=== PATIENT | male | born 1950 | race Caucasian/White ===

== ENCOUNTER 2018-02-01 21:49 | Observation (INO) | payer MEDICARE ==
[2018-02-01] MEDS ORDERED: ASPIRIN 81 MG CHEWABLE TABLET PO ONE (22:15)
--- NOTE | 2018-02-01 22:22 | Emergency Department Record ---
History of Present Illness - General Chief Complaint: Chest Pain Stated Complaint: CHEST PAIN Time Seen by Provider: 02/01/18 22:08 Source: Patient Mode of Arrival: Ambulatory Limitations: No limitations - History of Present Illness Initial Comments: 67 yo male presents to ED for evaluation of chest pain symptoms that began this evening while doing dishes at home. Patient described his pain symptoms as a "twinge" intermittently, denies chest pressure or difficulty in breathing symptoms. Patient reports history of CHF and atrial fibrillation managed by his insurance follow up specialist in [place] (just moved her 3 weeks ago). Patient denies fevers , chills, or recent illness. Patient denies lower extremity pain or swelling on examination. MD Complaint: Chest pain Onset/Timin -: Minutes(s) Onset: Other Pain Location: Left chest Quality: Sharp Consistency: Now resolved Improves With: Nothing Worsens With: Nothing - Related Data Home Medications Medication Instructions Recorded Confirmed Last Taken Lisinopril [Zestril] 2.5 mg PO DAILY 02/01/18 02/01/18 Unknown Omeprazole 40 mg PO BID 02/01/18 02/01/18 Unknown Allergies Allergy/AdvReac Type Severity Reaction Status Date / Time No Known Drug Allergies Allergy Verified 02/01/18 21:52 Travel Screening - Travel/Exposure Within Last 30 Days Have you traveled within the last 30 days?: Yes Location Detail:: from [place] - Travel Symptoms Symptom Screening: None - Additional Travel Comment Additional Travel/Exposure Comment: left [place] Jan 02- 5 day trip all together Review of Systems Constitutional: Denies: Chills, Fever, Malaise, Night sweats Eyes: Denies: Eye discharge, Eye pain ENT: Denies: Congestion, Ear pain, Epistaxis Respiratory: Denies: Cough, Dyspnea Cardiovascular: Reports: Chest pain. Denies: Dyspnea on exertion, Edema Endocrine: Denies: Fatigue, Heat or cold intolerance Gastrointestinal: Denies: Abdominal pain, Nausea, Vomiting Genitourinary: Denies: Incontinence, Retention Musculoskeletal: Denies: Arthralgia, Back pain, Gout, Joint swelling Skin: Denies: Bruising, Change in color Neurological: Denies: Abnormal gait, Confusion, Headache, Seizure Psychiatric: Denies: Anxiety Hematological/Lymphatic: Reports: Easy bleeding, Easy bruising. Denies: Anemia , Blood Clots Past Medical History - SOCIAL HISTORY Smoking Status: Never smoker - RESPIRATORY Hx Respiratory Disorders: Yes Hx Sleep Apnea: Yes Hx of CPAP: Yes - CARDIOVASCULAR Hx Cardio Disorders: Yes Hx CHF: Yes Hx Edema: Yes Hx Hypertension: Yes Hx Irregular Heartbeat: Yes (A-fib) Comment:: "low blood pressure" - NEURO Hx Neuro Disorders: Yes Hx Dizziness: Yes (Vertigo) Hx TIA: Yes - GI Hx GI Disorders: Yes Hx Reflux: Yes - Hx Genitourinary Disorders: No - ENDOCRINE Hx Endocrine Disorders: No - MUSCULOSKELETAL Hx Musculoskeletal Disorders: Yes Hx Arthritis: Yes - PSYCH Hx Psych Problems: Yes Hx Anxiety: Yes - HEMATOLOGY/ONCOLOGY Hx Hematology/Oncology Disorders: No Family Medical History Any Significant Family History?: Yes Family Hx Comment (NOT TO BE USED IN PLACE OF ITEMS BELOW): sister w/IBS Hx Cancer: Father, Brother/Sister Hx Diabetes: Brother/Sister Hx Heart Disease: Father, Mother, Brother/Sister Hx Resp Disorders: Mother *Resp Comment: COPD Hx Stroke: Mother, Grandparents Physical Exam - General General Appearance: Alert, Oriented x3, Cooperative, No acute distress Limitations: No limitations - Head Head exam: Atraumatic, Normocephalic, Normal inspection Head exam detail: negative: Abrasion, Contusion, Devries's sign, General tenderness, Hematoma, Laceration - Eye Eye exam: Normal appearance. negative: Conjunctival injection, Periorbital swelling, Periorbital tenderness, Scleral icterus - ENT Ear exam: negative: Auricular hematoma, Auricular trauma Nasal Exam: negative: Active bleeding, Discharge, Dried blood, Foreign body Mouth exam: negative: Drooling, Laceration, Muffled voice, Tongue elevation - Neck Neck exam: Normal inspection. negative: Meningismus, Tenderness - Respiratory Respiratory exam: Normal lung sounds bilaterally. negative: Rales, Respiratory distress, Rhonchi, Stridor - Cardiovascular Cardiovascular Exam: Normal rhythm, Normal heart sounds, Irregular rhythm - GI/Abdominal GI/Abdominal exam: Soft. negative: Rebound, Rigid, Tenderness - Rectal Rectal exam: Deferred - exam: Deferred - Extremities Extremities exam: Normal inspection. negative: Calf tenderness, Pedal edema, Tenderness - Back Back exam: Denies: CVA tenderness (R), CVA tenderness (L) - Neurological Neurological exam: Alert, Normal gait, Oriented X3 - Psychiatric Psychiatric exam: Normal affect, Normal mood - Skin Skin exam: Normal color. negative: Abrasion Type of lesion: negative: abrasion Course Vital Signs 02/01/18 21:53 Temperature 98.0 F Pulse Rate 102 H Respiratory 20 Rate Blood Pressure 115/84 Pulse Ox 98 - Reevaluation(s) Reevaluation #1: 02/01/18 22:20 EKG: Atrial fibrillation 89 Normal axis, irregular R-R intervals Nonspecific ST-T wave changes are present. Reevaluation #2: 02/01/18 23:11 Laboratory studies were reviewed and are grossly unremarkable except for: BNP 913 Glucose 153 CXR: No acute process Patient was updated on all results, will admit for further cardiac evaluation. Patient is CP-free at this time. Reevaluation #3: 02/02/18 07:05 Case was discussed with Dr. Stark, will accept admission at this time. Medical Decision Making - Lab Data Result diagrams: 02/01/18 22:11 02/01/18 22:11 Disposition Disposition: Admit Clinical Impression: Atrial fibrillation, chronic Chest pain Qualifiers: Chest pain type: unspecified Qualified Code(s): R07.9 - Chest pain, unspecified Disposition: Still a Patient at [facility] Decision to Admit: Admit from ER Decision to Admit Date: 02/01/18 Decision to Admit Time: 23:13 Condition: (2) Stable Time of Disposition: 23:13 Quality - Quality Measures Quality Measures: N/A - Blood Pressure Screening Does Patient Have Any of the Following: No Blood Pressure Classification: Pre-Hypertensive BP Reading Systolic Measurement: 115 Diastolic Measurement: 84 Screening for High Blood Pressure: < Pre-Hypertensive BP, F/U Documented > [ [id number]] Pre-Hypertensive Follow-up Interventions: Referral to alternative/primary care provider.
[2018-02-01 22:29] LABS: BASO % 0.2 % (0-6); GRAN % 57.1 % (47-80); HEMATOCRIT 47.5 % (42.0-52.0); HEMOGLOBIN 15.9 gm/dl (14.0-18.0); LYMPH % 31.3 % (16-45); MEAN CELL VOLUME 93.7 fl (81-97); MEAN CORPUSCULAR HEMOGLOBIN 31.4 pg (27-33); MEAN CORPUSCULAR HGB CONC 33.5 g/dl (32-36); MEAN PLATELET VOLUME 10.9 fl (7.4-10.4); MONO % 9.4 % (0-9); PLATELET COUNT 202 K/uL (130-400); RED BLOOD COUNT 5.07 M/uL (4.40-5.70); RED CELL DISTRIBUTION WIDTH 13.8 % (11.5-14.5); WHITE BLOOD COUNT W/O DIFF 10.3 K/uL (4.2-12.2)
[2018-02-01 22:38] LABS: BLOOD UREA NITROGEN 16 mg/dL (8-23); CREATININE 0.8 mg/dL (0.7-1.2); EST GLOMERULAR FILTRATION RATE > 60 mL/min
[2018-02-01 22:41] LABS: GLUCOSE,RANDOM 153 mg/dL (74-109)
[2018-02-01 22:43] LABS: ALB/GLOB RATIO 1.6 (1.1-1.8); ALBUMIN 4.3 g/dL (4.0-5.0); ALT/SGPT 27 U/L (<41); AST/SGOT 19 U/L (10.0-50.0)
[2018-02-01 22:44] LABS: ALKALINE PHOSPHATASE 63 U/L (40-129)
[2018-02-01] MEDS ORDERED: 0.9 % SODIUM CHLORIDE 1000ML 1,000 ML IV PRN (23:45)
[2018-02-01] MEDS ORDERED: ACETAMINOPHEN 500 MG TABLET PO PRN (23:45)
[2018-02-01] MEDS ORDERED: NITROGLYCERIN 0.4MG SL TABLET #25 BTL SL PRN (23:45)
--- NOTE | 2018-02-02 08:04 | RADIOLOGY REPORT ---
EXAM: CHEST, TWO VIEWS HISTORY: LEFT MID TO UPPER CHEST PAIN. BLURRED VISION. TECHNIQUE: Upright PA and lateral views of the chest were obtained. Comparison: None. FINDINGS: The heart projects normal in size and no pulmonary venous hypertension is seen. No confluent air space opacity is demonstrated nor is there costophrenic angle blunting or pneumothorax. Bridging marginal osteophytes are scattered throughout the visualized spine. Mild levoconvex curvature of the upper thoracic spine. The thoracic aorta is tortuous and atherosclerotic. IMPRESSION: NO CONVINCING RADIOGRAPHIC EVIDENCE OF ACUTE CARDIOPULMONARY DISEASE. JOB NUMBER: [id number] [facility]
[2018-02-02] MEDS ORDERED: LISINOPRIL 5 MG TABLET PO SCH (10:00)
[2018-02-02] MEDS: PANTOPRAZOLE SODIUM 40 MG TABLET PO SCH ×2 (10:07→21:40)
[2018-02-02] MEDS: ASPIRIN 325 MG TAB ENTERIC-COATED PO SCH (10:07)
[2018-02-02] MEDS ORDERED: MAGNESIUM OXIDE 400 MG TABLET PO ONE (11:07)
--- NOTE | 2018-02-02 11:22 | History & Physical ---
History of Present Illness - Date of Service Date of Service for History & Physical: 02/02/18 - History of Present Illness Admitting Diagnosis: Chest pain. Chronic atrial fibrillation. TIA like symptoms. Hypotension History of Present Illness: PMHx: TIA's, chronic hypotension, A-fib, CAD 02/01/18 Pt states that he woke up yesterday with blurred vision and states that his vision was so blurred that he couldn't read things infront of him. He also states that when he walked he had 3 episodes where he felt that he was "veering off to the L". Later on in the day he states that he was doing dishes when he felt a sharp stabbing in the L side of the chest 3-4 times. His cousin was worried and urged his to go to the ED for evaluation. In the ED he continued to have " twinges in the L side of the chest", some indigestion and foot cramping. He also complains of hypotension that is chronic for him - he lives roughly around 90's to mid 80's for systolic BP. States that he is on lasix, metoprolol , spirinolactone, lisinopril, elequis, and atorvastatin at home. ED course: VS: BP-95/67, satting normally on RA, normal HR, afebrile. CXR: negative for acute findings. No pulmonary edema noted. EKG: A-fib, normal rate. BNP 918 Trop (-) x 2. CMP wnl. Pt admitted for further observation and cardiac rule out for CP. 02/02/18 This morning the pt states that his blurred vision and balance issues have resolved. He states that he does continue to have twinges in his chest b/l as well as numbness in his left arm. He mentions that his young child can be rough with his neck sometimes and is wondering if he CP could be due to this. He does state that he has neuropathy in his ext that has been diagnosed in the past. States that he has been more forgetful lately - this worries him. Also states that he has had episodes of wanting to say a specific word but unable to say it - this frustrates him. Otherwise no complaints. Travel Screening - Travel/Exposure Within Last 30 Days Have you traveled within the last 30 days?: Yes Location Detail:: from [place] - Travel/Exposure Within Last Year Have you traveled outside the [place] in the last year?: No - Additonal Travel Details Have you been exposed to anyone with a communicable illness?: No - Travel Symptoms Symptom Screening: None - Additional Travel Comment Additional Travel/Exposure Comment: left [place] Jan 02- day trip all together Review of Systems Constitutional: Denies: Chills, Fever, Malaise, Night sweats Eyes: Reports: Vision change. Denies: Eye discharge, Eye pain ENT: Reports: Hearing loss (chronic). Denies: Congestion, Ear pain, Epistaxis, Throat pain Respiratory: Denies: Cough, Dyspnea, Wheezes Cardiovascular: Reports: Chest pain. Denies: Dyspnea on exertion, Edema, Murmurs, Palpitations, Syncope Endocrine: Denies: Fatigue, Heat or cold intolerance Gastrointestinal: Denies: Abdominal pain, Constipation, Diarrhea, Nausea, Vomiting Genitourinary: Denies: Discharge, Dysuria, Frequency, Incontinence, Retention Musculoskeletal: Denies: Arthralgia, Back pain, Gout, Joint swelling Skin: Denies: Bruising, Change in color Neurological: Denies: Abnormal gait, Confusion, Headache, Seizure Psychiatric: Denies: Anxiety, Depression Hematological/Lymphatic: Reports: Easy bleeding, Easy bruising. Denies: Anemia , Blood Clots Past Medical History - SOCIAL HISTORY Smoking Status: Never smoker - RESPIRATORY Hx Respiratory Disorders: Yes Hx Sleep Apnea: Yes Hx of CPAP: Yes - CARDIOVASCULAR Hx Cardio Disorders: Yes Hx CHF: Yes Hx Edema: Yes Hx Hypertension: Yes Hx Irregular Heartbeat: Yes (A-fib) Comment:: "low blood pressure" - NEURO Hx Neuro Disorders: Yes Hx Dizziness: Yes (Vertigo) Hx TIA: Yes - GI Hx GI Disorders: Yes Hx Reflux: Yes - Hx Genitourinary Disorders: No - ENDOCRINE Hx Endocrine Disorders: No - MUSCULOSKELETAL Hx Musculoskeletal Disorders: Yes Hx Arthritis: Yes - PSYCH Hx Psych Problems: Yes Hx Anxiety: Yes - HEMATOLOGY/ONCOLOGY Hx Hematology/Oncology Disorders: No Family Medical History Any Significant Family History?: Yes Family Hx Comment (NOT TO BE USED IN PLACE OF ITEMS BELOW): sister w/IBS Hx Cancer: Father, Brother/Sister Hx Diabetes: Brother/Sister Hx Heart Disease: Father, Mother, Brother/Sister Hx Resp Disorders: Mother *Resp Comment: COPD Hx Stroke: Mother, Grandparents H&P Meds/Allergies - Allergies Allergies: Allergies Allergy/AdvReac Type Severity Reaction Status Date / Time No Known Drug Allergies Allergy Verified 02/01/18 21:52 - Home Medications Home Medications Medication Instructions Recorded Confirmed Last Taken Lisinopril [Zestril] 2.5 mg PO DAILY 02/01/18 02/01/18 Unknown Omeprazole 40 mg PO BID 02/01/18 02/01/18 Unknown - Active Medications Active Medications: Current Medications Acetaminophen (Tylenol 500mg Tab) 1,000 mg PO Q6H PRN PRN Reason: PAIN - MILD(1-4)/FEVER Aspirin (Ecotrin (Ec)) 325 mg PO DAILY [facility] Last Admin: 02/02/18 10:07 Dose: 325 mg Lisinopril (Zestril) 2.5 mg PO DAILY [facility] Last Admin: 02/02/18 10:07 Dose: 2.5 mg Magnesium Oxide (Mag Ox) 400 mg PO NOW ONE Stop: 02/02/18 11:08 Nitroglycerin (Nitrostat 0.4mg) 0.4 mg SL Q5MIN PRN PRN Reason: CHEST PAIN Pantoprazole Sodium (Protonix) 40 mg PO BID [facility] Last Admin: 02/02/18 10:07 Dose: 40 mg Physical Exam - Vital Signs Vital Signs: Vital Signs - Last 24 Hrs Temp Pulse Pulse Pulse Resp BP BP 02/02/18 08:19 102 H 18 02/02/18 08:17 98.0 F 78 18 99/61 02/02/18 05:45 98.0 F 86 18 94/58 02/02/18 01:19 75 18 02/02/18 01:00 97.6 F 84 18 89/61 02/02/18 00:33 81 20 91/66 02/01/18 22:51 80 16 95/67 02/01/18 21:53 98.0 F 102 H 20 115/84 Pulse Ox 02/02/18 08:19 02/02/18 08:17 100 02/02/18 05:45 99 02/02/18 01:19 02/02/18 01:00 100 02/02/18 00:33 96 02/01/18 22:51 98 02/01/18 21:53 98 - General General Appearance: Alert, Oriented x3, Cooperative, No acute distress Limitations: No limitations - Head Head exam: Atraumatic, Normocephalic, Normal inspection Head exam detail: negative: Abrasion, Contusion, Devries's sign, General tenderness, Hematoma, Laceration - Eye Eye exam: Normal appearance, PERRL, EOMI. negative: Conjunctival injection, Periorbital swelling, Periorbital tenderness, Scleral icterus Pupils: Normal accommodation - ENT ENT exam: Mucous membranes moist, TM's normal bilaterally Ear exam: Normal external inspection. negative: Auricular hematoma, Auricular trauma Nasal Exam: Normal inspection. negative: Active bleeding, Discharge, Dried blood, Foreign body Mouth exam: negative: Drooling, Laceration, Muffled voice, Tongue elevation Throat exam: Normal inspection - Neck Neck exam: Normal inspection. negative: Meningismus, Tenderness - Respiratory Respiratory exam: Normal lung sounds bilaterally. negative: Rales, Respiratory distress, Rhonchi, Stridor - Cardiovascular Cardiovascular Exam: Regular rate, Normal heart sounds, Irregular rhythm - GI/Abdominal GI/Abdominal exam: Soft, Normal bowel sounds. negative: Rebound, Rigid, Tenderness - Rectal Rectal exam: Deferred - exam: Deferred - Extremities Extremities exam: Pedal edema (trace b/l) - Neurological Neurological exam: Alert, CN II-XII intact, Motor sensory deficit, Oriented X3, Other (strength normal in all 4 ext and symmetric. negative for pronator drift. ). negative: Altered - Psychiatric Psychiatric exam: Normal affect, Normal mood. negative: Anxious, Depressed - Skin Skin exam: Normal color. negative: Abrasion Type of lesion: negative: abrasion Results - Labs Result Diagrams: 02/01/18 22:11 02/01/18 22:11 Labs Last 24 Hours: Laboratory Results - last 24 hr 02/01/18 02/01/18 02/01/18 22:11 22:11 22:11 WBC 10.3 RBC 5.07 Hgb 15.9 Hct 47.5 MCV 93.7 MCH 31.4 MCHC 33.5 RDW 13.8 Plt Count 202 MPV 10.9 H Gran % 57.1 Lymphocytes % 31.3 Monocytes % 9.4 H Eosinophils % 2.0 Basophils % 0.2 Sodium 137 Potassium 3.7 Chloride 98 Carbon Dioxide 24.0 Anion Gap 15.0 BUN 16 Creatinine 0.8 Estimated GFR > 60 Random Glucose 153 H Calcium 9.4 Magnesium Total Bilirubin 1.00 AST 19 ALT 27 Alkaline Phosphatase 63 Troponin T < 0.010 NT-Pro-B Natriuret Pep 913.20 H Total Protein 7.0 Albumin 4.3 Globulin 2.7 Albumin/Globulin Ratio 1.6 02/02/18 02/02/18 02/02/18 06:31 10:35 10:49 WBC RBC Hgb Hct MCV MCH MCHC RDW Plt Count MPV Gran % Lymphocytes % Monocytes % Eosinophils % Basophils % Sodium Potassium Chloride Carbon Dioxide Anion Gap BUN Creatinine Estimated GFR Random Glucose Calcium Magnesium Cancelled 1.9 Total Bilirubin AST ALT Alkaline Phosphatase Troponin T < 0.010 NT-Pro-B Natriuret Pep Total Protein Albumin Globulin Albumin/Globulin Ratio VTE H&P Assessment - Risk for VTE Risk for VTE: Yes Risk Level: Moderate Risk Assessment Date: 02/02/18 Risk Assessment Time: 11:35 VTE Orders Placed or Will Be Placed: Yes Stroke Assessment - NIH Stroke Scale 1a. Level of Consciousness: (0) Alert 1b. LOC Questions: (0) Answers Correctly 1c. LOC Commands: (0) Performs Tasks Correctly 2. Best Gaze: (0) Normal 3. Visual: (0) No Visual Loss 4. Facial Palsy: (0) Normal Symmetrical Movement 5a. Motor Arm Left: (0) No Drift 5b. Motor Arm Right: (0) No Drift 6a. Motor Leg Left: (0) No Drift 6b. Motor Leg Right: (0) No Drift 7. Limb Ataxia: (0) Absent 8. Sensory: (0) Normal 9. Best Language: (0) No Aphasia 10. Dysarthria: (0) Normal 11. Extinction/Inattention: (0) No Abnormality NIH Stoke Scale Total: 0 Plan - Detailed Diagnosis and Plan (1) TIA (transient ischemic attack) Current Visit: Yes Status: Acute Base Code: G45.9 - TRANSIENT CEREBRAL ISCHEMIC ATTACK, UNSPECIFIED Priority: High Comment: - will do workup for possible TIA given hx and resolution of symptoms. - CT head - Carotid U/S - Echo complete - Will consider doing 2/2 stroke prevention with high dose statins. (2) Hypotension Current Visit: Yes Status: Chronic Base Code: I95.9 - HYPOTENSION, UNSPECIFIED Priority: High Comment: - Cardio c/s - Pt chronically has low BP at home. - Holding lasix and spirinolactone at this time. - Already got morning dose of lisinopril although small dose. - Vitals Q 4 hours. - Asymptomatic at this time. (3) Chest pain Current Visit: Yes Status: Acute Qualifiers: Chest pain type: unspecified Qualified Code(s): R07.9 - Chest pain, unspecified Base Code: R07.9 - CHEST PAIN, UNSPECIFIED Priority: Medium Comment: - Cardio c/s - Less likley cardiac in nature - atypical. - will monitor closely. - Trop - x 2, third pending. (4) Atrial fibrillation, chronic Current Visit: Yes Status: Acute Base Code: I48.2 - CHRONIC ATRIAL FIBRILLATION Priority: Low Comment: - Cardio consulted - Tele - Regular rate - currently in a-fib. - Continue eliquis as prescribed. - Mag 1.9, will optomize and get > 2. 400mg mag ordered once. - Disposition Home pending cardio c/s and TIA workup.
[2018-02-02] MEDS: APIXABAN 5MG TABLET PO SCH (17:12)
[2018-02-02] MEDS ORDERED: ATORVASTATIN 20 MG TABLET PO SCH (22:00)
[2018-02-03] MEDS ORDERED: METOPROLOL TART 25 MG TABLET PO SCH (10:00)
[2018-02-03] MEDS: PANTOPRAZOLE SODIUM 40 MG TABLET PO SCH (11:09)
[2018-02-03] MEDS: ASPIRIN 325 MG TAB ENTERIC-COATED PO SCH (11:09)
[2018-02-03] MEDS: APIXABAN 5MG TABLET PO SCH (11:09)
[2018-02-03] MEDS ORDERED: DIGOXIN 125 MCG TABLET PO ONE (17:30)
--- NOTE | 2018-02-03 17:37 | Discharge Note ---
VTE H&P Assessment - Risk for VTE Risk for VTE: Yes Risk Level: Moderate Risk Assessment Date: 02/02/18 Risk Assessment Time: 11:35 VTE Orders Placed or Will Be Placed: Yes Discharge Medications - Discharge Medications Prescriptions: Digoxin [Lanoxin] 125 mcg PO DAILY #30 tablet Home Medications: Ambulatory Orders Omeprazole 40 mg PO BID 02/01/18 [Last Taken Unknown] Apixaban [Eliquis] 5 mg PO BID 02/02/18 [Last Taken Unknown] Atorvastatin Calcium 80 mg PO QHS 02/02/18 [Last Taken Unknown] Cholecalciferol (Vitamin D3) [Vitamin D3] 2,000 unit PO QHS 02/02/18 [Last Taken Unknown] Acetaminophen [Tylenol 500Mg Tab] 1,000 mg PO Q6H PRN tablet 02/03/18 [Last Taken Unknown] Apixaban [Eliquis] 5 mg PO BID tablet 02/03/18 [Last Taken Unknown] Digoxin [Lanoxin] 125 mcg PO DAILY #30 tablet 02/03/18 [Last Taken Unknown] Discharge Note - Date Date of Discharge Note: 02/03/18 Disposition: Home, Self-Care Condition: (2) Stable Additional Instructions: follow up Dr. Shaffer after the cardiac stress and if he finds a pallet rectifier in [facility] can switch over at that time. follow up with Dr montesinos in 2 weeks any general medical problems and when he finds a AA switch over stop lasix spironolactone, lisinopril metooprolol, and start digoxin one day if his weight goes up 4 pounds in 24 hours and restart lasix once a day Forms: Patient Portal Access Activity at Discharge: Increase Activity as Tolerated
--- NOTE | 2018-02-04 | Cardiology Consult ---
DATE: 02/02/2018 CONSULTING: LIZZY MEDINA HISTORY OF PRESENT ILLNESS: Mr. Hunt is a very pleasant 67-year-old male with confusing past medical history. He recently moved here from [place] and no records are available to me. He states that he has a history of hypertension but has been chronically hypotensive. He also states that he has chronic atrial fibrillation as well as congestive heart failure. He also has a history of TIA' s. He has been admitted to [facility] with complaint of blurry vision and unsteady gait. He also at some point developed sharp left-sided chest pain. His NIH Stroke Scale score is 0. EKG on admission demonstrates atrial fibrillation with a rate of 89 beats per minute and no acute ST or T- wave changes. Blood pressure has been low with systolic in the 70's mmHg. Troponins have been negative x2. proBNP is slightly elevated at 913. Kidney function has been stable with BUN of 16 and creatinine of 0.8. Hemoglobin is 15.9 and white blood cell count is 10.3. Chest x-ray did not suggest any acute cardiopulmonary processes. Carotid Dopplers were performed and there is no significant high-grade stenosis bilaterally. Head CT was also performed and results are pending. Echocardiogram is also pending. Today, patient is feeling well. His blurry vision has resolved. He has had no further episodes of chest pain. Blood pressure is still low but he denies any orthostatic complaints. At home, he is taking Aldactone, Lasix as needed for swelling, Lisinopril 2.5 mg daily, and Metoprolol succinate 100 mg daily. Currently, all blood pressure medications are on hold except for Lisinopril 2.5 mg daily, which he did get this morning. He also takes Eliquis 5 mg twice daily for CVA prophylaxis. CHADS- VASc score would be elevated at 5 for age, hypertension, CHF, and TIA. Atorvastatin 80 mg daily has been appropriately added for his history of TIA's. Patient thinks he had an echocardiogram about one year ago but is unsure of the results. He denies previous stress testing. He denies history of coronary artery disease. He states that at one time, he may have been pre-diabetic but currently denies diabetes. He denies tobacco use history. Family history includes his mother, who had a pacemaker and his sister, who has a history of atrial fibrillation. ALLERGIES: NO KNOWN DRUG ALLERGIES. MEDICATIONS: Atorvastatin 80 mg daily Aspirin 81 mg daily Eliquis 5 mg b.i.d. PAST MEDICAL HISTORY: Chronic atrial fibrillation, hypertension, obstructive sleep apnea, CHF, and TIA. SOCIAL HISTORY: Denies tobacco, alcohol, and illicit drug use. FAMILY HISTORY: Mom had a pacemaker, sister paroxysmal atrial fibrillation. REVIEW OF SYSTEMS: CONSTITUTIONAL: Denies fever, chills, sweats, lightheadedness, dizziness, syncope. EYES: Positive for blurry vision. EARS, NOSE, MOUTH, THROAT: Denies ear pain, nasal congestion, sore throat. RESPIRATORY: Denies shortness of breath, cough. CARDIOVASCULAR: Positive for sharp left-sided chest pain. Denies shortness of breath, palpitations, PND, orthopnea, and syncope. PERIPHERAL VASCULAR: Occasional peripheral edema, for which he takes Lasix as needed, denies claudication. GASTROINTESTINAL: Denies nausea, vomiting, diarrhea. MUSCULOSKELETAL: Denies back pain, neck pain, joint pain, muscle pain, decreased range of motion. INTEGUMENTARY: Denies rash, pruritus, abrasions. NEUROLOGIC: Positive for blurry vision and unsteady gait. PSYCHIATRIC: Denies anxiety, depression. PHYSICAL EXAM: VITAL SIGNS: Heart rate 102 beats per minutes, blood pressure 115/84 mmHg, temperature 98 degrees Fahrenheit, respiratory rate 20 breaths per minute, oxygen saturation 98%. GENERAL: Alert and oriented, well-nourished, no acute distress. HEAD: Normocephalic, atraumatic. ENT: EOMI, PERRL. No scleral icterus, erythema. Throat free from erythema, lesions. NECK: Supple, nontender, no carotid bruits, no JVD. RESPIRATORY: Clear to auscultation, nonlabored respiration. No wheezing, rhonchi , rales. CARDIAC: Irregularly irregular rhythm. No murmurs, rubs, or gallops audible. PERIPHERAL VASCULAR: No peripheral edema. No cyanosis, clubbing. Peripheral pulses 2+ and symmetric. ABDOMEN: Obese, soft, nontender, nondistended, normal bowel sounds. SKIN: Skin is warm, dry, and pink. No rashes or lesions noted. MUSCULOSKELETAL: Normal range of motion of all four extremities. Normal gait. NEUROLOGIC: Awake, alert, and oriented x3. PSYCHIATRIC: Cooperative, appropriate mood and affect. LABS: White blood cell count 10.3, hemoglobin 15.9, hematocrit 47.5, platelets 202. Sodium 137, potassium 3.7, chloride 98, CO2 is 24, BUN 16, creatinine 0.8, glucose 153. Troponin negative x2, proBNP 913. TESTING: CT of the head is pending. Echocardiogram is pending. EKG on admission demonstrated atrial fibrillation with a rate of 89 beats per minute and no acute ST or T-wave changes. Carotid Dopplers performed this admission demonstrate less than 50% stenosis bilaterally. ASSESSMENT & PLAN: 1. CHRONIC ATRIAL FIBRILLATION: Patient states that he has a history of chronic atrial fibrillation. Heart rate is currently well controlled at 89 beats per minute. His CHADS-VASc score is elevated at 5 for age, hypertension, TIA, and CHF. He is on Eliquis 5 mg twice daily for CVA prophylaxis, which will be continued. Unfortunately, he has been hypotensive and all blood pressure medications have been on hold. Would like to resume Beta-elma at a lower dose when blood pressure will tolerate it for rate control. 2. HYPOTENSION: Patient has a history of hypertension and at home he is taking Aldactone, Lasix 20 mg every other day, Metoprolol succinate 100 mg daily, and Lisinopril 2.5 mg daily. Currently, all blood pressure medications are on hold. He did receive Lisinopril 2.5 mg this morning but his systolic blood pressure was 70 mmHg earlier today. Blood pressure is currently 115/84 mmHg. As stated above, if blood pressure will tolerate it, I would like to add back his Beta- elma but at a lower dose for his history of CHF as well as his chronic atrial fibrillation. 3. TIA: Patient was admitted with symptoms of blurry vision as well as unsteady gait. He has a history of TIA's in the past and his story is consistent with another TIA. Carotid Doppler was performed and there is no evidence of high- grade stenosis. CT of the head has been performed and results are pending. Echocardiogram was completed today but I am unsure if this was done with bubble study. Recommending adding bubble study if it is not done already. Agree with adding Atorvastatin 80 mg daily. He will continue with Eliquis 5 mg b.i.d. for CVA prophylaxis for history of atrial fibrillation. Continue with TIA workup as per Internal Medicine. 4. CHF: Patient states that he has a history of CHF. At one point, he believes his heart function was weak but it has since improved. His echocardiogram was performed today and the results are pending. He has been on good medication regimen of Aspirin, Beta-elma, and Lisinopril. Will initiate Beta-elma again when blood pressure tolerates it. Will await echo results to see if patient still needs YAYO inhibitor. 5. CHEST PAIN: Patient's initial presenting complaint was blurred vision and unsteady gait. When he got to the [facility] he had been complaining of some intermittent sharp left-sided chest pain. Denies associated shortness of breath , lightheadedness, dizziness, nausea, and diaphoresis. His troponin has been negative x2. EKG was reviewed and demonstrates atrial fibrillation with a rate of 89 beats per minute but no changes concerning for ACS. Patient is hesitant about a stress test and denies a previous one. He does have risk factors for coronary artery disease, however. Can discuss further stress testing as an outpatient. cc: Elisabet Shaffer M.D. JOB NUMBER: [id number] MTDD
[2018-02-04] MEDS ORDERED: DIGOXIN 125 MCG TABLET PO SCH (10:00)
--- NOTE | 2018-02-04 18:00 | Discharge Summary ---
This is an observation patient. DISCHARGE DIAGNOSES: 1. Chest pain, anterior chest wall. No signs of an AR by EKGs, cardiac enzymes, or echocardiogram. 2. Hypotension, low baseline blood pressure. Medication effect. 3. History of congestive heart failure on [place]. 4. History of atrial fibrillation, on Eliquis twice a day. Will continue that. 5. Hypercholesterolemia. ATTENDING PHYSICIAN: Primitivo Fisher DO REASON FOR HOSPITALIZATION: The patient had some left-sided chest pain that started about 30 minutes prior to coming to the hospital while he was washing the dishes, a stabbing-like pain. It subsided on the way to the hospital. He had twinges in the chest, a weird feeling all day. He had some trouble walking and he also had some indigestion. No nausea or sweats. He was evaluated in the emergency department by Dr. Zazueta and admitted to the hospital for serial cardiac enzymes, cardiology consult, and further evaluation. This patient lived in [place] 3 weeks ago. He had a heart workup, a heart catheterization there in [place] after atrial fibrillation with congestive heart failure. His brain natriuretic peptide in the ER was 913. He was on multiple medications which could be contributing to his bradycardia and hypotension. SIGNIFICANT FINDINGS: Echocardiogram showing normal ejection fraction. Cardiac carotid Dopplers were negative. No stenosis appreciated. EKG showing atrial fibrillation. No acute changes. The troponin T's were negative x3 time points. The pro-CURTAIN CUTTER HAND was 913. White count 10,300, hemoglobin 15.9. BUN 16, creatinine 0.8. THERAPY PROVIDED: Medications were stopped. Lasix, Aldactone, lisinopril, and metoprolol. Pressures gradually came up. He was asymptomatic walking around the room. He does have atrial fibrillation. Cardiology consult was obtained. Initially seen by the PA of Dr. Shaffer and Dr. Shaffer saw him also today. He felt that stopping the diuretics and lisinopril and metoprolol and switching only to digoxin for rate control of his atrial fibrillation is the best way to go. He will follow up. The patient wants to move to [place] where his is working. He would like to get a heavy duty truck mechanic and a family doctor there but in the meantime, he can follow up with Dr. Shaffer for further evaluation and a stress test in the next week or 2 until he finds a heavy duty truck mechanic in [place]. When he does that, he can switch over at that point. The patient is asymptomatic throughout the day today. HOSPITAL COURSE: Gradually improved. CONDITION ON DISCHARGE: Much improved. DISCHARGE INSTRUCTIONS: Follow up with Dr. Shaffer in 1-2 weeks. Cardiac stress test will be ordered as an outpatient through Dr. Shaffer. The patient is to follow up with me, Dr. Fisher, in 1-2 weeks depending on if he has any general medical problems and he can switch over at any time when he finds a general practitioner or a heavy duty truck mechanic in [place]. The patient states in his medical history that he had a heart catheterization in [place] which showed 1-vessel blockage and he had angioplasty, maybe a stent; he is not sure. Activity as tolerated. Will start digoxin 125 mcg once a day. Continue omeprazole 40 mg b.i.d. Continue Eliquis 5 mg b.i.d. Continue atorvastatin 80 mg at h.s. Continue the vitamin D3, 2000 units a day. Will stop his Lasix, stop the Aldactone, stop his lisinopril, and stop the metoprolol. If his weight goes up 4 pounds, he should restart the Lasix. MTDD
--- NOTE | 2018-02-05 10:48 | CT SCAN REPORT ---
EXAM: EMERGENCY HEAD CT HISTORY: BLURRED VISION, BALANCE ISSUES, TIMES OF CONFUSION. HEADACHE. TECHNIQUE: Axial CT scan of the head was performed without IV contrast. Comparison: No prior head CT with which to compare. FINDINGS: No definite acute intracranial hemorrhage identified. No focal mass effect or midline shift apparent. Mild generalized atrophy. No definite acute infarct or intracranial mass lesion is seen. No depressed calvarial fracture is evident. IMPRESSION: 1. MILD GENERALIZED ATROPHY. 2. NO DEFINITE ACUTE INTRACRANIAL HEMORRHAGE OR FOCAL MASS EFFECT IDENTIFIED. JOB NUMBER: [id number] [facility]
--- NOTE | 2018-02-05 10:58 | US CAROTID DOPPLER REPORT ---
EXAM: EMERGENCY BILATERAL CAROTID DOPPLER ULTRASOUND HISTORY: TIA LIKE SYMPTOMS NOW AND IN THE PAST. TECHNIQUE: A stat bilateral carotid Doppler ultrasound was performed with jiménez scale, color Doppler and duplex Doppler evaluation of the bilateral carotid arteries. Comparison: No prior carotid Doppler ultrasound with which to compare. FINDINGS: 3 Vessel Right Peak Systolic/ End Diastolic Velocities Left Peak Systolic/ End Diastolic Velocities Proximal Common Carotid Artery 50.4 cm/s /17.5 cm/s 77.9 cm/s /27.4 cm/s Mid Common Carotid Artery 75.7 cm/s /23.0 cm/s 84.5 cm/s /32.9 cm/s Distal Common Carotid Artery 57.0 cm/s /17.5 cm/s 82.3 cm/s /28.5 cm/s Proximal Internal Carotid Artery 50.4 cm/s /24.1 cm/s 53.7 cm/s /19.7 cm/s Mid Internal Carotid Artery 50.4 cm/s /18.6 cm/s 61.4 cm/s /28.5 cm/s Distal Internal Carotid Artery 58.4 cm/s /21.7 cm/s 66.9 cm/s /25.2 cm/s Carotid Bulb 40.1 cm/s /20.0 cm/s 75.7 cm/s /21.9 cm/s Proximal External Carotid Artery 116.1 cm/s /33.8 cm/s 83.4 cm/s /15.3 cm/s d d d Right Flow Left Flow Vertebral Artery Antegrade Antegrade The peak ICA/CCA systolic velocity ratio on the right is 0.8. The peak ICA/CCA systolic velocity ratio on the left is 0.8. On the images themselves there does appear to be a small amount of calcified plaque in the region of the proximal right ICA. A similar small amount of calcified plaque is seen in the proximal left ICA. IMPRESSION: 1. MILD CALCIFIED PLAQUE IN BOTH PROXIMAL ICA'S. 2. NON-ELEVATED PEAK SYSTOLIC AND END DIASTOLIC VELOCITIES WITH ANTEGRADE FLOW IN BOTH VERTEBRALS AND NORMAL PEAK SYSTOLIC VELOCITY RATIOS BILATERALLY. NO APPEARANCE TO SUGGEST A HIGH GRADE STENOSIS ON EITHER SIDE IDENTIFIED. JOB NUMBER: [id number] MTDD
== END 2018-02-03 19:05 | disposition home or self-care (01) ==
LOC: ER 21:49 → MEDSURG 02-02 00:36
PROVIDERS: ADMIT Internal Medicine; ATTEND Internal Medicine
DX: R07.9 Chest pain, unspecified (principal); I48.2 Chronic atrial fibrillation; G45.9 Transient cerebral ischemic attack, unspecified; I50.9 Heart failure, unspecified; I95.89 Other hypotension; I25.10 Atherosclerotic heart disease of native coronary artery without angina pectoris; E78.00 Pure hypercholesterolemia, unspecified; G47.30 Sleep apnea, unspecified; M19.90 Unspecified osteoarthritis, unspecified site; Z86.73 Personal history of transient ischemic attack (TIA), and cerebral infarction without residual deficits
CPT/HCPCS: 70450; 71046; 80053; 83735; 83880; 84484; 85025; 93005; 93010; 93306; 93880; 99217; 99220; 99285

== ENCOUNTER 2018-02-22 14:41 | Emergency (ER) | payer MEDICARE ==
[2018-02-22] MEDS ORDERED: DILTIAZEM 25MG/5ML VIAL IV ONE (14:58)
[2018-02-22] MEDS ORDERED: 0.9 % SODIUM CHLORIDE 1000ML 1,000 ML IV PRN (15:00)
[2018-02-22] MEDS ORDERED: ASPIRIN 81 MG CHEWABLE TABLET PO ONE (15:00)
--- NOTE | 2018-02-22 15:02 | Emergency Department Record ---
History of Present Illness - General Chief Complaint: Difficulty Breathing Stated Complaint: LISSETTE,CHEST PAIN Time Seen by Provider: 02/22/18 14:58 Source: Patient, RN notes reviewed Mode of Arrival: Wheelchair - History of Present Illness Initial Comments: sob and some abdominal pain this am and some chest pain and history of atrial fib. Patient was seen here about 3 weeks ago with similiar problem and seen by Dr. Shaffer and started on lanoxin 0.125 mg per day and that was started because he was getting hypotension with the betablockers. Patient talked to his it security analyst in [place] and he was told that is a medication which may shorten his life and he stopped it and today developed atrial fib with rapid Ventricular response. After an enema for his abdominal pain and that felt better but he became SOB and palpatations and chest pain. Onset/Timin -: Hour(s) Improves With: Nothing Worsens With: Nothing Treatments Prior to Arrival: Other - Related Data Home Medications Medication Instructions Recorded Confirmed Last Taken Furosemide [Lasix] 20 mg PO DAILY 02/22/18 02/22/18 Unknown Previous Rx's Medication Instructions Recorded Acetaminophen [Tylenol 500Mg Tab] 1,000 mg PO Q6H PRN tablet 02/03/18 Apixaban [Eliquis] 5 mg PO BID tablet 02/03/18 Allergies Allergy/AdvReac Type Severity Reaction Status Date / Time No Known Drug Allergies Allergy Verified 02/22/18 14:43 Travel Screening - Travel/Exposure Within Last 30 Days Have you traveled within the last 30 days?: No - Travel/Exposure Within Last Year Have you traveled outside the [place] in the last year?: No - Additonal Travel Details Have you been exposed to anyone with a communicable illness?: No - Travel Symptoms Symptom Screening: None Review of Systems Reviewed: No additional complaints except as noted below Constitutional: Reports: As per HPI. Denies: Chills, Fever, Malaise, Night sweats, Weakness, Weight change Eyes: Reports: As per HPI. Denies: Eye discharge, Eye pain, Photophobia, Vision change ENT: Reports: As per HPI. Denies: Congestion, Dental pain, Ear pain, Epistaxis , Hearing loss, Throat pain Respiratory: Reports: As per HPI, Dyspnea. Denies: Cough, Hemoptysis, Stridor, Wheezes Cardiovascular: Reports: As per HPI, Chest pain. Denies: Arrhythmia, Dyspnea on exertion, Edema, Murmurs, Orthopnea, Palpitations, Paroxysmal nocturnal dyspnea, Rheumatic Fever, Syncope Endocrine: Reports: As per HPI. Denies: Fatigue, Heat or cold intolerance, Polydipsia, Polyuria Gastrointestinal: Reports: As per HPI, Abdominal pain. Denies: Constipation, Diarrhea, Hematemesis, Hematochezia, Melena, Nausea, Vomiting Genitourinary: Reports: As per HPI. Denies: Dysuria, Frequency, Hematuria, Incontinence, Retention, Testicular pain, Testicular mass, Urgency Musculoskeletal: Reports: As per HPI. Denies: Arthralgia, Back pain, Gout, Joint swelling, Myalgia, Neck pain Skin: Reports: As per HPI. Denies: Bruising, Change in color, Change in hair/ nails, Lesions, Pruritus, Rash Neurological: Reports: As per HPI. Denies: Abnormal gait, Confusion, Headache, Numbness, Paresthesias, Seizure, Tingling, Tremors, Vertigo, Weakness Psychiatric: Reports: As per HPI. Denies: Anxiety, Auditory hallucinations, Depression, Homicidal thoughts, Suicidal thoughts, Visual hallucinations Hematological/Lymphatic: Reports: As per HPI. Denies: Anemia, Blood Clots, Easy bleeding, Easy bruising, Swollen glands Past Medical History - SOCIAL HISTORY Smoking Status: Never smoker Alcohol Use: None Drug Use: None - RESPIRATORY Hx Respiratory Disorders: Yes Hx Sleep Apnea: Yes Hx of CPAP: Yes - CARDIOVASCULAR Hx Cardio Disorders: Yes Hx CHF: Yes Hx Edema: Yes Hx Hypertension: Yes Hx Irregular Heartbeat: Yes (A-fib) Comment:: "low blood pressure" - NEURO Hx Neuro Disorders: Yes Hx Dizziness: Yes (Vertigo) Hx TIA: Yes - GI Hx GI Disorders: Yes Hx Reflux: Yes - Hx Genitourinary Disorders: No - ENDOCRINE Hx Endocrine Disorders: No - MUSCULOSKELETAL Hx Musculoskeletal Disorders: Yes Hx Arthritis: Yes - PSYCH Hx Psych Problems: Yes Hx Anxiety: Yes - HEMATOLOGY/ONCOLOGY Hx Hematology/Oncology Disorders: No Family Medical History Any Significant Family History?: Yes Family Hx Comment (NOT TO BE USED IN PLACE OF ITEMS BELOW): sister w/IBS Hx Cancer: Father, Brother/Sister Hx Diabetes: Brother/Sister Hx Heart Disease: Father, Mother, Brother/Sister Hx Resp Disorders: Mother *Resp Comment: COPD Hx Stroke: Mother, Grandparents Physical Exam - General General Appearance: Alert, Oriented x3, Cooperative, No acute distress - Head Head exam: Normal inspection - Eye Eye exam: Normal appearance, PERRL Pupils: Normal accommodation - ENT ENT exam: Normal exam, Mucous membranes moist, Normal external ear exam, Normal orophraynx, TM's normal bilaterally Ear exam: Normal external inspection. negative: External canal tenderness Nasal Exam: Normal inspection. negative: Discharge, Sinus tenderness Mouth exam: Normal external inspection, Tongue normal Teeth exam: Normal inspection. negative: Dental caries Throat exam: Normal inspection. negative: Tonsillar erythema, Tonsillar exudate - Neck Neck exam: Normal inspection, Full ROM. negative: Tenderness - Respiratory Respiratory exam: Normal lung sounds bilaterally. negative: Respiratory distress - Cardiovascular Cardiovascular Exam: Normal heart sounds, Irregular rhythm, Tachycardia - GI/Abdominal GI/Abdominal exam: Soft, Normal bowel sounds. negative: Tenderness - Rectal Rectal exam: Deferred - exam: Deferred - Extremities Extremities exam: Normal inspection, Full ROM, Normal capillary refill. negative: Tenderness - Back Back exam: Reports: Normal inspection, Full ROM. Denies: Muscle spasm, Rash noted, Tenderness - Neurological Neurological exam: Alert, Normal gait, Oriented X3, Reflexes normal - Psychiatric Psychiatric exam: Normal affect, Normal mood - Skin Skin exam: Dry, Intact, Normal color, Warm Course Vital Signs 02/22/18 14:46 Temperature 97.8 F Pulse Rate 130 H Respiratory 24 Rate Blood Pressure 123/95 Pulse Ox 99 - Reevaluation(s) Reevaluation #1: patient is feeling better and his heart rate is around 100. Will obtain 2nd trop t 02/22/18 18:12 Reevaluation #2: discussed case with patient and want him transferred to [facility] to see cardiology tomorrow. 02/22/18 18:54 Reevaluation #3: discussed case with Dr. Ma and he said transfer him to [facility] at [facility] and he will consult . Discussed case with Dr Herron and he accepted the patient. 02/22/18 19:08 02/22/18 19:10 Transfer patient to [facility] via ambulance Reevaluation #4: Patient on elliquis for his chronic atrial fib 02/22/18 19:12 Medical Decision Making - Data Complexity MDM Data: Labs Ordered and/or Reviewed (troponin T times two neg), X-Ray Ordered and/or Reviewed (chest xray borderline cardiomeaglly and no lung findings), EKG Ordered and/or Reviewed (atrial fibrillation fast response, No acute changes) - Lab Data Result diagrams: 02/22/18 14:45 02/22/18 14:45 Disposition Clinical Impression: Tachycardia Atrial fibrillation Qualifiers: Atrial fibrillation type: chronic Qualified Code(s): I48.2 - Chronic atrial fibrillation Hypotension Qualifiers: Hypotension type: unspecified hypotension type Qualified Code(s): I95.9 - Hypotension, unspecified Disposition: Acute Care Hospital Transfer Condition: (2) Stable Forms: Patient Portal Access Time of Disposition: 19:14 Quality - Quality Measures Quality Measures: N/A - Blood Pressure Screening Does Patient Have Any of the Following: No Blood Pressure Classification: Hypertensive Reading Systolic Measurement: 123 Diastolic Measurement: 95 Screening for High Blood Pressure: < Pre-Hypertensive BP, F/U Documented > [ [id number]] Pre-Hypertensive Follow-up Interventions: Referral to alternative/primary care provider.
[2018-02-22 15:13] LABS: BASO % 0.2 % (0-6); EOS % 0.2 % (0-6); GRAN % 78.6 % (47-80); HEMATOCRIT 43.7 % (42.0-52.0); HEMOGLOBIN 14.6 gm/dl (14.0-18.0); LYMPH % 11.4 % (16-45); MEAN CELL VOLUME 94.6 fl (81-97); MEAN CORPUSCULAR HEMOGLOBIN 31.6 pg (27-33); MEAN CORPUSCULAR HGB CONC 33.4 g/dl (32-36); MONO % 9.6 % (0-9); PLATELET COUNT 192 K/uL (130-400); RED BLOOD COUNT 4.62 M/uL (4.40-5.70); RED CELL DISTRIBUTION WIDTH 13.8 % (11.5-14.5); WHITE BLOOD COUNT W/O DIFF 10.5 K/uL (4.2-12.2)
[2018-02-22 15:22] LABS: BLOOD UREA NITROGEN 13 mg/dL (8-23); CREATININE 0.6 mg/dL (0.7-1.2); EST GLOMERULAR FILTRATION RATE > 60 mL/min
[2018-02-22 15:24] LABS: GLUCOSE,RANDOM 142 mg/dL (74-109)
--- NOTE | 2018-02-25 08:15 | RADIOLOGY REPORT ---
EXAM: CHEST HISTORY: DIFFICULTY BREATHING. TECHNIQUE: A single frontal view of the chest was obtained. Comparison: Chest radiograph 02/01/18. FINDINGS: Borderline cardiac silhouette enlargement similar from prior. The pulmonary vasculature is nondilated. No focal consolidation, pleural effusion or pneumothorax. IMPRESSION: NO ACUTE LUNG BLUE. JOB NUMBER: [id number] MTDD
== END 2018-02-22 20:28 | disposition short-term general hospital (02) ==
LOC: ER 14:41
DX: R00.0 Tachycardia, unspecified (principal); I48.2 Chronic atrial fibrillation; I95.2 Hypotension due to drugs; I50.9 Heart failure, unspecified; I10 Essential (primary) hypertension; Z79.01 Long term (current) use of anticoagulants
CPT/HCPCS: 71045; 80048; 84484; 85025; 85730; 93005; 93010; 96374; 99285

== ENCOUNTER 2018-03-02 16:49 | Emergency (ER) | payer MEDICARE ==
--- NOTE | 2018-03-02 17:25 | Emergency Department Record ---
History of Present Illness - General Chief complaint: Swelling of legs Stated complaint: SWOLLEN LEGS AND ABDOMIN Time Seen by Provider: 03/02/18 17:03 Source: Patient Mode of Arrival: Ambulatory Limitations: No limitations - History of Present Illness Initial comments: The patient is here due to lower leg swelling and slight abdominal swelling for a week. He recently was diagnosed with Afib and did have an episode of CHF due to Rapid A fib. The patient was admitted to the hospital 10 days ago for that and then did have his gallbladder removed 4 days ago. He was discharged from [facility] yesterday for that and now feels like the leg swelling is worse and he also may have some abdominal bloating. There is no AP, nausea, vomiting, diarrhea, CP , SOB, FRANCISCO, or orthopnea. After getting home yesterday his scale read that he may have gained 10 lbs from the day prior so he was concerned enough to call the surgical nurse who told him to go to the ER. Today his scale only read that he gained 6 lbs from comparing it to 2 days ago at [facility]. He also has been eating well and having normal BM's. MD Complaint: Extremity swelling Onset/Timin -: Week(s) Location: Other History of Same: Yes Radiation: None Consistency: Constant Improves with: Nothing Worsens with: Nothing Associated Symptoms: Denies other symptoms - Related Data Home Medications Medication Instructions Recorded Confirmed Last Taken Amoxicillin/Potassium Clav 1 tab PO DAILY 03/02/18 03/02/18 Unknown [Augmentin 875-125 Tablet] Digoxin 0.125 mg PO DAILY 03/02/18 03/02/18 Unknown Metoprolol Tartrate [Lopressor] 50 mg PO BID 03/02/18 03/02/18 Unknown Multivitamin [Multi-Vitamin Daily] 1 tab PO DAILY 03/02/18 03/02/18 Unknown Previous Rx's Medication Instructions Recorded Acetaminophen [Tylenol 500Mg Tab] 1,000 mg PO Q6H PRN tablet 02/03/18 Apixaban [Eliquis] 5 mg PO BID tablet 02/03/18 Allergies Allergy/AdvReac Type Severity Reaction Status Date / Time No Known Drug Allergies Allergy Verified 03/02/18 17:03 Travel Screening - Travel/Exposure Within Last 30 Days Have you traveled within the last 30 days?: No - Travel/Exposure Within Last Year Have you traveled outside the [place] in the last year?: No - Additonal Travel Details Have you been exposed to anyone with a communicable illness?: No - Travel Symptoms Symptom Screening: None Review of Systems Constitutional: Denies: Chills, Fever Eyes: Denies: Eye discharge ENT: Denies: Congestion Respiratory: Denies: Cough, Dyspnea Cardiovascular: Denies: Chest pain Endocrine: Reports: Fatigue Gastrointestinal: Denies: Abdominal pain, Diarrhea, Nausea, Vomiting Genitourinary: Denies: Dysuria Musculoskeletal: Denies: Arthralgia Past Medical History - SOCIAL HISTORY Smoking Status: Never smoker Alcohol Use: Rare Drug Use: None - RESPIRATORY Hx Respiratory Disorders: Yes Hx Sleep Apnea: Yes Hx of CPAP: Yes - CARDIOVASCULAR Hx Cardio Disorders: Yes Hx CHF: Yes Hx Edema: Yes Hx Hypertension: Yes Hx Irregular Heartbeat: Yes (A-fib) Comment:: "low blood pressure" - NEURO Hx Neuro Disorders: Yes Hx Dizziness: Yes (Vertigo) Hx TIA: Yes - GI Hx GI Disorders: Yes Hx Reflux: Yes - Hx Genitourinary Disorders: No - ENDOCRINE Hx Endocrine Disorders: No - MUSCULOSKELETAL Hx Musculoskeletal Disorders: Yes Hx Arthritis: Yes - PSYCH Hx Psych Problems: Yes Hx Anxiety: Yes - HEMATOLOGY/ONCOLOGY Hx Hematology/Oncology Disorders: No Family Medical History Any Significant Family History?: Yes Family Hx Comment (NOT TO BE USED IN PLACE OF ITEMS BELOW): sister w/IBS Hx Cancer: Father, Brother/Sister Hx Diabetes: Brother/Sister Hx Heart Disease: Father, Mother, Brother/Sister Hx Resp Disorders: Mother *Resp Comment: COPD Hx Stroke: Mother, Grandparents Physical Exam - General General Appearance: Alert, Oriented x3, Cooperative, No acute distress - Head Head exam: Atraumatic, Normocephalic, Normal inspection - Eye Eye exam: Normal appearance, PERRL, EOMI - ENT Throat exam: Normal inspection. negative: Tonsillar erythema, Tonsillar exudate - Neck Neck exam: Normal inspection, Full ROM. negative: Tenderness - Respiratory Respiratory exam: Normal lung sounds bilaterally. negative: Respiratory distress - Cardiovascular Cardiovascular Exam: Irregular rhythm. negative: Regular rate, Normal rhythm, Normal heart sounds, Gallop, Tachycardia - GI/Abdominal GI/Abdominal exam: Soft, Normal bowel sounds, Distended (very mildly. (normal recently per patient)), Tenderness (There is mild tenderness in all 4 quads but it appears consistent with having GB surgery 4 days ago.). negative: Guarding, Rebound, Rigid - Extremities Extremities exam: Normal inspection, Normal capillary refill, Pedal edema (1+ bilaterally.). negative: Calf tenderness, Tenderness - Neurological Neurological exam: Alert, Normal gait, Oriented X3. negative: Abnormal gait, Motor sensory deficit Course Vital Signs 03/02/18 16:53 Temperature 98.6 F Pulse Rate 101 H Respiratory 24 Rate Blood Pressure 110/75 Pulse Ox 96 - Reevaluation(s) Reevaluation #1: The patient is doing very well at this time. He denies any AP, nausea, or vomiting. He has urinated multiple times since he received the IV Lasix and has no LISSETTE or SOB. His BNP is elevated but I do not have a recent baseline to compare it to. Clinically he is not in CHF due to having a normal RA biox, normal CXR, and clear lungs on exam. We will discuss the post op changes on CT with his General surgeon and if given the OK will discharge him for F/U with Cardiology. 03/02/18 19:19 Reevaluation #2: I did discuss the case with Dr. Villafana (Gen Surg) who is secretary receptionist for Dr. Galindo and she is aware of the patient being here and does agree with the discharge. The patient does have an appointment with Dr. Galindo next week and is encouraged to keep it. 03/02/18 19:32 Medical Decision Making - Data Complexity MDM Data: Labs Ordered and/or Reviewed, X-Ray Ordered and/or Reviewed, EKG Ordered and/or Reviewed - Lab Data Result diagrams: 03/02/18 17:45 03/02/18 17:45 - EKG Data -: EKG Interpreted by Me EKG: No Acute Changes, Unchanged From Previous, Abnormal EKG (Afib at 120. No change compared to 02/22/18.) - Radiology Data Radiology results: Report reviewed (CT: Post op changes consistent with recent GB surgery. ) Disposition Disposition: Discharge Clinical Impression: Leg edema Disposition: Home, Self-Care Condition: (2) Stable Instructions: Leg Edema (ED) Additional Instructions: Please continue your regular medicines and please continue the Lasix 20 mg daily. Please see DR. Shaffer later this week for recheck and please call for an appointment. Return to the ER for any abdominal pain, fever, vomiting, shortness of breath or worsening leg swelling. Forms: Patient Portal Access Time of Disposition: 19:34 Quality - Quality Measures Quality Measures: N/A - Blood Pressure Screening View Details: Yes Does Patient Have Any of the Following: No Blood Pressure Classification: Normal BP Reading Systolic Measurement: 110 Diastolic Measurement: 75 Screening for High Blood Pressure: < Normal BP, F/U Not Required > [G8783]
[2018-03-02 17:55] LABS: HEMATOCRIT 39.8 % (42.0-52.0); HEMOGLOBIN 13.1 gm/dl (14.0-18.0); MEAN CELL VOLUME 94.5 fl (81-97); MEAN CORPUSCULAR HEMOGLOBIN 31.1 pg (27-33); MEAN CORPUSCULAR HGB CONC 32.9 g/dl (32-36); MEAN PLATELET VOLUME 9.6 fl (7.4-10.4); PLATELET COUNT 379 K/uL (130-400); RED BLOOD COUNT 4.21 M/uL (4.40-5.70); RED CELL DISTRIBUTION WIDTH 13.9 % (11.5-14.5); WHITE BLOOD COUNT W/O DIFF 13.2 K/uL (4.2-12.2)
[2018-03-02 18:04] LABS: PLATELET ESTIMATE NORMAL (NORMAL)
[2018-03-02 18:07] LABS: INR 1.4; PARTIAL THROMBOPLASTIN TIME 31.2 SECONDS (24.5-39.1); PROTHROMBIN TIME (PATIENT) 14.3 SECONDS (9.5-12.1)
[2018-03-02 18:08] LABS: BLOOD UREA NITROGEN 11 mg/dL (8-23); CREATININE 0.6 mg/dL (0.7-1.2); EST GLOMERULAR FILTRATION RATE > 60 mL/min; TOTAL PROTEIN 6.7 g/dL (6.6-8.7)
[2018-03-02 18:10] LABS: GLUCOSE,RANDOM 114 mg/dL (74-109)
[2018-03-02 18:13] LABS: ALBUMIN 3.4 g/dL (4.0-5.0); ALKALINE PHOSPHATASE 122 U/L (40-129); ALT/SGPT 68 U/L (<41); AST/SGOT 36 U/L (10.0-50.0); CREATINE PHOSPHOKINASE 55 U/L (39-308)
[2018-03-02 18:17] LABS: CKMB 1.7 ng/mL (<6.73)
[2018-03-02 18:28] LABS: THYROID STIMULATING HORMONE 1.53 uIU/mL (0.270-4.20)
[2018-03-02] MEDS ORDERED: FUROSEMIDE IV 40MG/4ML VIAL IVP ONE (18:30)
[2018-03-02 18:33] LABS: URINE APPEARANCE CLEAR; URINE BILIRUBIN NEGATIVE (NEGATIVE); URINE BLOOD NEGATIVE (NEGATIVE); URINE COLOR YELLOW; URINE GLUCOSE (UA) NEGATIVE (NEGATIVE); URINE KETONE NEGATIVE (NEGATIVE); URINE LEUKOCYTE ESTERASE NEGATIVE (NEGATIVE); URINE NITRITE NEGATIVE (NEGATIVE); URINE PROTEIN NEGATIVE (NEGATIVE); URINE UROBILINOGEN >=8.0 E.U./dL (0.20 - 1.00)
[2018-03-02] MEDS ORDERED: POTASSIUM CHLORIDE 20 MEQ TABLET PO ONE (19:27)
--- NOTE | 2018-03-05 14:54 | RADIOLOGY REPORT ---
EXAM: CHEST, TWO VIEWS HISTORY: DIFFICULTY BREATHING. TECHNIQUE: Frontal and lateral views of the chest were obtained. Comparison: Chest x-ray 02/22/18. FINDINGS: Frontal and lateral views of the chest show normal lung volumes. There is a linear band scar in the left lower lobe. Mild prominence of the interstitial markings, similar to previous exam. The cardiomediastinal silhouette is within normal limits. No pulmonary vascular congestion. No pleural effusion or pneumothorax. IMPRESSION: NO ACUTE ABNORMALITY IS IDENTIFIED IN THE CHEST. JOB NUMBER: [id number] MTDD
--- NOTE | 2018-03-05 15:07 | CT SCAN REPORT ---
EXAM: CT OF THE ABDOMEN AND PELVIS WITHOUT IV CONTRAST HISTORY: ABDOMINAL PAIN. RECENT GALLBLADDER SURGERY. TECHNIQUE: Helical CT scan of the abdomen and pelvis was obtained without intravenous and oral contrast. Comparison: None. FINDINGS: The lung bases show linear bands of subsegmental atelectasis in the left lower lobe. Moderate coronary artery calcifications. The cardiac atria are mildly dilated. ABDOMEN: Post surgical changes from recent cholecystectomy with gas and a small amount of complex fluid in the gallbladder fossa measuring about 4.8 x 3 x 3.4 cm. There is also gas in the anterior abdominal wall and a tiny amount of peritoneal gas. Suboptimal evaluation of the solid organs without intravenous contrast. The liver has normal size. Question slight nodularity of the surface contour of the liver. The spleen has normal size. No renal calculi or hydronephrosis. A cyst is seen in the mid right kidney, 3.7 cm. No inflammatory change associated with the pancreas. The bowel has normal caliber. The hepatic flexure of the colon is adjacent to the surgical bed, no focal wall thickening is seen. No adenopathy or ascites. PELVIC: Moderate sigmoid colonic diverticulosis without acute inflammatory changes. The appendix is normal. The bone structures show mild degenerative changes of the spine. IMPRESSION: RECENT POSTOPERATIVE CHANGES AFTER CHOLECYSTECTOMY. THERE IS A SMALL AMOUNT OF COMPLEX FLUID AND GAS IN THE GALLBLADDER FOSSA WHICH CAN BE SEEN AFTER RECENT CHOLECYSTECTOMY. IF SYMPTOMS PERSIST, CONSIDER FOLLOW-UP TO BE SURE THERE IS NO DEVELOPING ABSCESS. JOB NUMBER: [id number] MTDD
== END 2018-03-02 19:48 | disposition home or self-care (01) ==
LOC: ER 16:49
DX: R60.0 Localized edema (principal); I10 Essential (primary) hypertension; I50.9 Heart failure, unspecified; I48.91 Unspecified atrial fibrillation
CPT/HCPCS: 71046; 74176; 80053; 80162; 81003; 82248; 82550; 82553; 83880; 84443; 84484; 85027; 85610; 85730; 93005; 93010; 96372; 99284; J1940